=== PATIENT | female | born 1980 | race Caucasian/White ===

== ENCOUNTER 2017-07-12 17:13 | Emergency (ER) | payer MEDICAID | END 2017-07-12 18:42 | disposition home or self-care (01) | LOC: D.ER 17:13 | DX: S01.01XA Laceration without foreign body of scalp, initial encounter (principal); W20.8XXA Other cause of strike by thrown, projected or falling object, initial encounter; Y93.89 Activity, other specified; Y92.019 Unspecified place in single-family (private) house as the place of occurrence of the external cause ==